=== PATIENT | male | born 1995 ===

== ENCOUNTER 2019-08-28 15:43 | Emergency (ER) | payer OTHER ==
[2019-08-28] MEDS ORDERED: Ketorolac INJ* 30 MG/ML 1 ML VIAL IM ONE (18:00)
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
[2019-08-28 19:11] VITALS: BP 137/76
== END 2019-08-28 19:10 | disposition home or self-care (01) ==
LOC: ED 15:43
DX: M54.9 Dorsalgia, unspecified (principal); M79.672 Pain in left foot; M79.642 Pain in left hand; V49.40XA Driver injured in collision with unspecified motor vehicles in traffic accident, initial encounter; Y92.410 Unspecified street and highway as the place of occurrence of the external cause
CPT/HCPCS: 72070; 72110; 96372; 99282; J1885

== ENCOUNTER 2019-08-30 10:21 | Emergency (ER) | payer OTHER ==
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
[2019-08-30 11:11] VITALS: BP 136/86
== END 2019-08-30 11:15 | disposition home or self-care (01) ==
LOC: ED 10:21
DX: S39.012S Strain of muscle, fascia and tendon of lower back, sequela (principal); V43.52XS Car driver injured in collision with other type car in traffic accident, sequela
CPT/HCPCS: 99282

== ENCOUNTER 2019-09-21 04:32 | Emergency (ER) | payer SELFPAY ==
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
[2019-09-21] MEDS ORDERED: Ketorolac INJ* 30 MG/ML 1 ML VIAL IM ONE (05:14)
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
[2019-09-21 06:26] VITALS: BP 129/90
== END 2019-09-21 06:25 | disposition home or self-care (01) ==
LOC: ED 04:32
DX: M54.6 Pain in thoracic spine (principal)
CPT/HCPCS: 96372; 99282; J1885

== ENCOUNTER 2020-03-25 14:11 | Emergency (ER) | payer OTHER ==
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
[2020-03-25 14:26] VITALS: BP 147/98
--- NOTE | 2020-03-25 14:34 | UC ---
Headache HPI - HPI Summary HPI Summary: 24-year-old male presents with complaints of headache which started yesterday. Reports a frontal, throbbing headache that he rates as a 4 out of 10 in intensity. Headache is associated with nausea and mild photophobia. No history of migraines. Denies fever, chills, URI symptoms, neck pain or stiffness, aura, visual disturbances, dizziness, slurred or difficulty speaking , numbness, tingling, or weakness of the arms or legs, or vomiting. - History Of Current Complaint Chief Complaint: UCHeadache Stated Complaint: HEADACHE Time Seen by Provider: 03/25/20 14:27 Hx Obtained From: Patient - Allergies/Home Medications Allergies/Adverse Reactions: Allergies Allergy/AdvReac Type Severity Reaction Status Date / Time No Known Allergies Allergy Verified 03/25/20 14:21 Home Medications: Home Medications Metaxalone 1 tab PO 03/25/20 [History] PMH/Surg Hx/FS Hx/Imm Hx Previously Healthy: Yes - Denies significant PMH Other History Of: Negative For: Anticoagulant Therapy - Surgical History Surgical History: Yes Surgery Procedure, Year, and Place: TONSILS, TUBES IN EARS - Family History Family History: Denies significant FMH - Social History Lives: Alone Alcohol Use: Occasionally Substance Use Type: None Smoking Status (MU): Current Some Day Smoker Review of Systems All Other Systems Reviewed And Are Negative: Yes Constitutional: Negative: Fever, Chills Skin: Negative: Rash Eyes: Positive: Photophobia. Negative: Blurred Vision, Diplopia ENT: Negative: Sore Throat, Ear Ache, Nasal Discharge, Sinus Congestion, Sinus Pain/Tenderness Respiratory: Positive: Negative Cardiovascular: Positive: Negative Gastrointestinal: Positive: Negative Genitourinary: Positive: Negative Musculoskeletal: Positive: Negative Neurological/Mental Status: Positive: Headache. Negative: Weakness, Paresthesia , Numbness Is Patient Immunocompromised?: No Physical Exam - Summary Physical Exam Summary: GENERAL APPEARANCE: Well developed, well nourished, alert and cooperative, and appears to be in no acute distress. EYES: Conjunctiva clear. No drainage. PERRL, EOM intact. Vision is grossly intact. EARS: External auditory canals and tympanic membranes clear, hearing grossly intact. NOSE: No nasal discharge. THROAT: Pharynx normal. Surgically absent tonsils. Uvula midline. NECK: Neck supple, non-tender without lymphadenopathy. CARDIAC: Normal S1 and S2. No S3, S4 or murmurs. Rhythm is regular. There is no peripheral edema, cyanosis or pallor. Extremities are warm and well perfused. Capillary refill is less than 2 seconds. Peripheral pulses intact. LUNGS: Clear to auscultation without rales, rhonchi, wheezing or diminished breath sounds. ABDOMEN: Positive bowel sounds. Soft, nondistended, nontender. No guarding or rebound. No masses or hepatosplenomegally. MUSKULOSKELETAL: ROM intact to all extremities. No joint erythema or tenderness. Normal muscular development. Normal gait. NEUROLOGICAL: Strength and sensation symmetric and intact throughout. SKIN: Skin normal color, texture and turgor with no lesions or eruptions. Triage Information Reviewed: Yes Vital Signs: Initial Vital Signs Temp 98.8 F 03/25/20 14:25 Pulse 71 03/25/20 14:25 Resp 18 03/25/20 14:25 BP 147/98 03/25/20 14:25 Pulse Ox 98 03/25/20 14:25 Vital Signs Reviewed: Yes Headache Course/Dx - Course Course Of Treatment: 24-year-old male presents with complaints of headache which started yesterday. Reports a frontal, throbbing headache that he rates as a 4 out of 10 in intensity. Headache is associated with nausea and mild photophobia. No history of migraines. Denies fever, chills, URI symptoms, neck pain or stiffness, aura, visual disturbances, dizziness, slurred or difficulty speaking , numbness, tingling, or weakness of the arms or legs, or vomiting. Afebrile. Hypertensive otherwise vital signs stable. Patient's exam was overall unremarkable. Discussed with the patient that his headache was likely a tension -type headache although cannot rule out the possibility of migraine. He was given ketorolac 30 mg IM and ondansetron 4 mg PO for his symptoms. He is to continue with symptomatic treatment at home and follow up with his primary care provider in 2-3 days if symptoms are not improving. Anticipatory guidance and warning symptoms are reviewed the patient. Verbalizes understanding and agrees with plan of care. - Differential Dx/Diagnosis Differential Diagnosis/HQI/PQRI: Epidural Hematoma, Subdural Hematoma, Migraine , Sinus Headache, Subarachnoid Hemorrhage, Tension Headache, Viral Syndrome Provider Diagnosis: Acute headache Discharge ED - Sign-Out/Discharge Documenting (check all that apply): Patient Departure All imaging exams completed and their final reports reviewed: No Studies - Discharge Plan Condition: Stable Disposition: HOME Patient Education Materials: Acute Headache (ED) Forms: *Work Release Referrals: No Primary Care Phys,NOPCP [Primary Care Provider] - Additional Instructions: You were given an anti-inflammatory pain medication in the clinic called ketoralac (Toradol) at 2:40 pm for your headache. You should avoid taking any other anti-inflammatory pain medications such as ibuprofen (Advil, Motrin), naproxen (Aleve), or aspirin for at least 8 hours after receiving this medication. You may take acetaminophen (Tylenol) according to directions if needed. Get plenty of rest. Drink plenty of fluids. Follow up with your primary care provider in 2-3 days if symptoms are not improving. Seek immediate medical attention in the emergency room if you have worsening headache, visual disturbances, become dizzy or lightheaded, pass out, have slurred or difficulty speaking, confusion, develop weakness, numbness, or tingling in your arms or legs, have persistent vomiting, or any worsening of symptoms. - Billing Disposition and Condition Condition: STABLE Disposition: Home
[2020-03-25] MEDS ORDERED: Ondansetron ODT TAB* 4 MG PO ONE (14:41)
[2020-03-25] MEDS ORDERED: Ketorolac INJ* 30 MG/ML 1 ML VIAL IM ONE (14:41)
== END 2020-03-25 15:01 | disposition home or self-care (01) ==
LOC: UCEAST 14:11
DX: R51 Headache (principal); R11.0 Nausea; H53.149 Visual discomfort, unspecified; Z72.0 Tobacco use
CPT/HCPCS: 96372; 99212; A9270-GY; G0463; J1885